=== PATIENT | male | born 1990 | race Caucasian/White ===

== ENCOUNTER 2019-01-30 07:46 | Emergency (ER) | payer BC, OTHER, SELFPAY ==
--- NOTE | 2019-01-30 08:12 | EDPHYS ---
Physician Documentation [facility] Name: Warner York Age: 28 yrs Sex: Male : 1990 Arrival Date: 01/30/2019 Time: 07:52 Bed 16 Private MD: ED Physician Marcos Dumont HPI: 01/30 08:25 This 28 yrs old Male presents to ER via EMS with complaints of Facial Droop. kdr 08:25 The patient presents to the emergency department with weakness of the right side of the kdr face, that is mild, that is moderate. Onset: The symptoms/episode began/occurred yesterday. Context: occurred at home, occurred while the patient was at rest. Associated signs and symptoms: The patient has no apparent associated signs or symptoms. Severity of symptoms: At their worst the symptoms were mild moderate just prior to arrival, in the emergency department the symptoms are unchanged. Patient's baseline: Neuro: alert and fully oriented, Motor: no deficits, Ambulation: walks without assistance, Speech: normal. Current symptoms: paralysis or paresis, of the forehead, right eye, right cheek and right jaw, that is mild. The patient has not experienced similar symptoms in the past. The patient has not recently seen a physician. Historical: - Allergies: 07:54 No Known Allergies; bp - Home Meds: 07:54 None [Active]; bp - PMHx: 07:54 Hypertension; bp - Immunization history:: Adult Immunizations up to date. - Social history:: Smoking status: Patient/guardian denies using tobacco. - Ebola Screening: : No symptoms or risks identified at this time. ROS: 10:18 Constitutional: Negative for fever, chills, and weight loss, ENT: Negative for injury, kdr pain, and discharge, Neck: Negative for injury, pain, and swelling, Cardiovascular: Negative for chest pain, palpitations, and edema, Respiratory: Negative for shortness of breath, cough, wheezing, and pleuritic chest pain, Abdomen/GI: Negative for abdominal pain, nausea, vomiting, diarrhea, and constipation, Back: Negative for injury and pain, : Negative for injury, bleeding, discharge, and swelling, MS/Extremity: Negative for injury and deformity, Skin: Negative for injury, rash, and discoloration, Psych: Negative for depression, anxiety, suicide ideation, homicidal ideation, and hallucinations, Allergy/Immunology: Negative for hives, rash, and allergies, Endocrine: Negative for neck swelling, polydipsia, polyuria, polyphagia, and marked weight changes, Hematologic/Lymphatic: Negative for swollen nodes, abnormal bleeding, and unusual bruising. 10:18 Eyes: Positive for Upper eye lid weakness. Exam: 18:48 Constitutional: This is a well developed, well nourished patient who is awake, alert, kdr and in no acute distress. Head/Face: Normocephalic, atraumatic. Eyes: Pupils equal round and reactive to light, extra-ocular motions intact. Lids and lashes normal. Conjunctiva and sclera are non-icteric and not injected. Cornea within normal limits. Periorbital areas with no swelling, redness, or edema. ENT: Nares patent. No nasal discharge, no septal abnormalities noted. Tympanic membranes are normal and external auditory canals are clear. Oropharynx with no redness, swelling, or masses, exudates, or evidence of obstruction, uvula midline. Mucous membranes moist. Neck: Trachea midline, no thyromegaly or masses palpated, and no cervical lymphadenopathy. Supple, full range of motion without nuchal rigidity, or vertebral point tenderness. No Meningismus. Chest/axilla: Normal chest wall appearance and motion. Nontender with no deformity. No lesions are appreciated. Cardiovascular: Regular rate and rhythm with a normal S1 and S2. No gallops, murmurs, or rubs. Normal PMI, no JVD. No pulse deficits. Respiratory: Lungs have equal breath sounds bilaterally, clear to auscultation and percussion. No rales, rhonchi or wheezes noted. No increased work of breathing, no retractions or nasal flaring. Abdomen/GI: Soft, non-tender, with normal bowel sounds. No distension or tympany. No guarding or rebound. No evidence of tenderness throughout. Back: No spinal tenderness. No costovertebral tenderness. Full range of motion. Skin: Warm, dry with normal turgor. Normal color with no rashes, no lesions, and no evidence of cellulitis. MS/ Extremity: Pulses equal, no cyanosis. Neurovascular intact. Full, normal range of motion. Psych: Awake, alert, with orientation to person, place and time. Behavior, mood, and affect are within normal limits. 18:48 Neuro: Cranial nerves: facial droop noted on right, with forehead involved. decreased ocular muscle tone in the right upper eyelid. Vital Signs: 07:54 BP 174 / 98; Pulse 92; Resp 18; Temp 98; Pulse Ox 99% ; Weight 136.08 kg; Height 6 ft. bp 3 in. (190.50 cm); 07:54 Body Mass Index 37.50 (136.08 kg, 190.50 cm) bp MDM: 08:11 Patient medically screened. kdr 18:48 Data reviewed: vital signs, nurses notes. Counseling: I had a detailed discussion with kdr the patient and/or guardian regarding: the historical points, exam findings, and any diagnostic results supporting the discharge/admit diagnosis, the need for outpatient follow up. Administered Medications: No medications were administered Disposition: 01/30/19 08:11 Discharged to Home. Impression: Orlando's palsy. - Condition is Stable. - Discharge Instructions: Orlando Palsy, Adult. - Prescriptions for prednisone 5 mg Oral tablet - take 1 tablet by ORAL route once daily Following the 60 mg per day, take two tabs every five times on day six, two tabs four times a day on day 7, two tabs three times a day on day eight, then tow tabs twice a day on day nine then one tab twice a day on day 10. Dispense quantity sufficient.; 1 Container. Prednisone 20 mg Oral Tablet - take 3 tablet by ORAL route once daily for 5 days; 15 tablet. Valtrex 1 g Oral Tablet - take 1 tablet by ORAL route every 8 hours for 7 days; 21 tablet. - Medication Reconciliation Form, Thank You Letter form. - Follow up: Private Physician; When: 2 - 3 days; Reason: If symptoms return, Further diagnostic work-up, Recheck today's complaints, Continuance of care, Re-evaluation by your physician. Follow up: Alejandro Soto MD; When: 2 - 3 days; Reason: If symptoms return, Further diagnostic work-up, Recheck today's complaints, Continuance of care, Re-evaluation by your physician. - Problem is new. - Symptoms are unchanged. Signatures: Marcos Dumont MD MD kdr Kaleb To RN RN bp Corrections: (The following items were deleted from the chart) 08:34 08:11 01/30/2019 08:11 Discharged to Home. Impression: Orlando's palsy. Condition is bp Stable. Forms are Medication Reconciliation Form, Thank You Letter, Antibiotic Education, Prescription Opioid Use. Follow up: Private Physician; When: 2 - 3 days; Reason: If symptoms return, Further diagnostic work-up, Recheck today's complaints, Continuance of care, Re-evaluation by your physician. Follow up: Alejandro Soto; When: 2 - 3 days; Reason: If symptoms return, Further diagnostic work-up, Recheck today's complaints, Continuance of care, Re-evaluation by your physician. Problem is new. Symptoms are unchanged. kdr
--- NOTE | 2019-01-30 08:12 | ER ---
Nurse's Notes [facility] Name: Warner York Age: 28 yrs Sex: Male : 1990 Arrival Date: 01/30/2019 Time: 07:52 Bed 16 Private MD: Diagnosis: Orlando's palsy Presentation: 01/30 07:53 Presenting complaint: EMS states: R FACIAL DROOP. Transition of care: patient was not bp received from another setting of care. 07:53 Method Of Arrival: EMS: [facility] bp 07:53 Onset of symptoms was January 30, 2019. Risk Assessment: Do you want to hurt yourself or bp someone else? Patient reports no desire to harm self or others. Initial Sepsis Screen: Does the patient meet any 2 criteria? No. Patient's initial sepsis screen is negative. Does the patient have a suspected source of infection? No. Patient's initial sepsis screen is negative. Care prior to arrival: None. 07:53 Acuity: BELEN 4 bp Triage Assessment: 07:54 General: Appears in no apparent distress. comfortable, Behavior is calm, cooperative, bp appropriate for age. Pain: Denies pain. EENT: No deficits noted. Neuro: Level of Consciousness is awake, alert, obeys commands, Oriented to person, place, time, situation, Appropriate for age [employer] are equal bilaterally Moves all extremities. Full function Facial droop on right. Cardiovascular: No deficits noted. Respiratory: Airway is patent Respiratory effort is even, unlabored, Respiratory pattern is regular, symmetrical. GI: No signs and/or symptoms were reported involving the gastrointestinal system. : No signs and/or symptoms were reported regarding the genitourinary system. Derm: No deficits noted. Musculoskeletal: Circulation, motion, and sensation intact. Range of motion: intact in all extremities. Historical: - Allergies: 07:54 No Known Allergies; bp - Home Meds: 07:54 None [Active]; bp - PMHx: 07:54 Hypertension; bp - Immunization history:: Adult Immunizations up to date. - Social history:: Smoking status: Patient/guardian denies using tobacco. - Ebola Screening: : No symptoms or risks identified at this time. Screenin:56 Abuse screen: Denies threats or abuse. Denies injuries from another. Nutritional bp screening: No deficits noted. Tuberculosis screening: No symptoms or risk factors identified. 07:56 Fall Risk None identified. bp Assessment: 07:56 General: SEE TRIAGE NOTE. R FACIAL DROOP INVOLVING THE MOUTH, CHEEK AND BROW NOTED. bp 08:32 Reassessment: PT D/C HOME AMBULATORY WITH [facility]ER, DX WITH ORLANDO'S PALSY. bp Vital Signs: 07:54 BP 174 / 98; Pulse 92; Resp 18; Temp 98; Pulse Ox 99% ; Weight 136.08 kg; Height 6 ft. bp 3 in. (190.50 cm); 07:54 Body Mass Index 37.50 (136.08 kg, 190.50 cm) bp ED Course: 07:52 Patient arrived in ED. bp 07:54 Triage completed. bp 07:54 Marcos Dumont MD is Attending Physician. kdr 07:54 Arm band placed on. bp 07:56 Patient has correct armband on for positive identification. Bed in low position. Call bp light in reach. Side rails up X2. Adult w/ patient. 08:11 Alejandro Soto MD is Referral Physician. kdr 08:32 Kaleb To, RN is Primary Nurse. bp 08:33 No provider procedures requiring assistance completed. Patient did not have IV access bp during this emergency room visit. Administered Medications: No medications were administered Outcome: 08:11 Discharge ordered by . kdr 08:33 Discharged to home ambulatory, with friend. bp 08:33 Condition: stable 08:33 Discharge instructions given to patient, Instructed on discharge instructions, follow up and referral plans. medication usage, Demonstrated understanding of instructions, follow-up care, medications, Prescriptions given X 3. 08:34 Patient left the ED. bp Signatures: Marcos Dumont MD MD kdr Kaleb To, RN RN bp
== END 2019-01-30 08:34 | disposition home or self-care (01) ==
LOC: ER 07:46
DX: G51.0 Bell's palsy (principal); I10 Essential (primary) hypertension
CPT/HCPCS: 99283